=== PATIENT | female | born 1995 | race Two or more races ===

== ENCOUNTER 2017-03-30 20:32 | Emergency (ER) | payer MEDICAID ==
[~2017-03-30] VITALS: Ht 162.6 cm; Wt 74.6 kg
[~2017-03-30 20:32] MED LIST: PRENTAB28 PO
[2017-03-30 20:39] VITALS: BP 126/81
[2017-03-31] MEDS ORDERED: cefTRIAXone SOD 1,000 MG VL IM ONE
== END 2017-03-31 00:24 | disposition home or self-care (01) ==
LOC: ER 20:35
DX: L02.31 Cutaneous abscess of buttock (principal); L03.116 Cellulitis of left lower limb; Z79.899 Other long term (current) drug therapy
CPT/HCPCS: 96372; 99283; J0696

== ENCOUNTER 2017-11-26 06:53 | Emergency (ER) | payer MEDICAID ==
[~2017-11-26] VITALS: Ht 162.6 cm; Wt 74.8 kg
[2017-11-26 06:59] VITALS: BP 109/71
[2017-11-26] MEDS ORDERED: cefTRIAXone SOD 1,000 MG VL IM ONE (07:30)
[2017-11-26] MEDS ORDERED: ACETAMINOPHEN 500 MG TAB PO ONE (07:30)
== END 2017-11-26 07:46 | disposition home or self-care (01) ==
LOC: ER 06:53
DX: J03.90 Acute tonsillitis, unspecified (principal); N39.0 Urinary tract infection, site not specified
CPT/HCPCS: 81002; 96372; 99283; J0696

== ENCOUNTER 2024-06-21 22:06 | Emergency (ER) | payer MEDICAID ==
[~2024-06-21] VITALS: Ht 167.6 cm; Wt 79.4 kg
[2024-06-21 22:40] LABS: Urine Bacteria None Seen /hpf (None Seen)
[2024-06-21 22:43] LABS: Basophils # (auto) 0 10 ^3/uL (0-0.2); Basophils % (auto) 0.2 % (0.0-2.0); Eosinophils # (auto) 0.1 10 ^3/uL (0-0.8); Eosinophils % (auto) 0.9 % (0.0-7.0); Hemoglobin 13.6 g/dL (12.2-16.2); Lymphocytes # (auto) 2.2 10 ^3/uL (0.4-5.4); Lymphocytes % (auto) 25.1 % (10.0-50.0); Mean Corpuscular Hgb Conc. 34.1 g/dL (32.0-36.0); Mean Corpuscular Volume 94.1 fL (80.0-100.0); Monocytes # (auto) 0.7 10 ^3/uL (0-1.3); Monocytes % (auto) 7.8 % (0.0-12.0); Neutrophils # (auto) 5.7 10 ^3/uL (1.6-8.6); Nucleated Red Blood Cells % 0.1 %; Platelet Count (auto) 272 10^3/uL (140-450); Red Blood Cells 4.25 10^6/uL (4.0-5.20); Red Cell Distribution Width 12.9 % (11.8-14.3); White Blood Cell 8.6 10^3/uL (4.4-10.8)
[2024-06-21 22:59] LABS: Urine Blood Negative /uL (Negative); Urine Clarity Clear (Clear); Urine Color Yellow (Yellow); Urine Protein, UAD Negative (Negative); Urine Specific Gravity 1.026 (1.001-1.035); Urine Urobilinogen Normal (Negative); Urine WBC <1 /hpf (0 - 5); Urine pH 5.5 (5.0-9.0)
[2024-06-22 02:15] VITALS: BP 122/78; PULSE 84; RESP 18; TEMP 98.6; O2SAT 100
== END 2024-06-22 02:15 | disposition home or self-care (01) ==
LOC: ER 22:06
DX: O20.0 Threatened abortion (principal); R10.2 Pelvic and perineal pain; Z3A.11 11 weeks gestation of pregnancy; Z98.890 Other specified postprocedural states; Z79.899 Other long term (current) drug therapy
CPT/HCPCS: 36415; 76801; 76817; 81001; 84702; 85025

== ENCOUNTER 2025-01-04 17:11 | Emergency (ER) | payer MEDICAID ==
[~2025-01-04] VITALS: Ht 167.6 cm; Wt 81.0 kg
[2025-01-04 17:42] LABS: Basophils # (auto) 0 10 ^3/uL (0-0.2); Basophils % (auto) 0.4 % (0.0-2.0); Eosinophils # (auto) 0.1 10 ^3/uL (0-0.8); Eosinophils % (auto) 1.2 % (0.0-7.0); Hematocrit 42.2 % (36.0-46.0); Hemoglobin 14.4 g/dL (12.2-16.2); Lymphocytes # (auto) 2.5 10 ^3/uL (0.4-5.4); Lymphocytes % (auto) 30.8 % (10.0-50.0); Mean Corpuscular Hemoglobin 31.9 pg (28.0-32.0); Mean Corpuscular Hgb Conc. 34.2 g/dL (32.0-36.0); Mean Corpuscular Volume 93.1 fL (80.0-100.0); Monocytes # (auto) 0.8 10 ^3/uL (0-1.3); Monocytes % (auto) 9.6 % (0.0-12.0); Neutrophils # (auto) 4.6 10 ^3/uL (1.6-8.6); Nucleated Red Blood Cells % 0.1 %; Platelet Count (auto) 263 10^3/uL (140-450); Red Blood Cells 4.53 10^6/uL (4.0-5.20); Red Cell Distribution Width 12.9 % (11.8-14.3)
--- NOTE | 2025-01-04 17:50 | ED.PDOC ---
HPI Comments 29y F who presents to the ED for chief complaint of palpitations. Pt states she was at work and states her L arm felt weak and she started to have palpitations. Pt states the symptoms started at approx 430 PM, and have c ontinued since so she came to the ED for further evaluation. Pt in the ED, otherwise has noted stable vitals. Pt does states her father last and it has been stressor for her. Pt otherwise denies any past medical history. Pt denies any other symptoms. Pt denies any other symptoms at this time. Time Seen by MD: 17:44 Primary Care Provider: NONE Reviewed Notes: Nurses Notes, Medications, Allergies Allergies: Coded Allergies: NO KNOWN ALLERGIES (Unverified , 05/23/14) Home Meds Reported Medications Vit W/ Iron Carbonyl- ( PLUS IRON) Plus Fe Tab, 1 TAB PO DAILY, TAB 05/24/14 Information Source: Patient Mode of Arrival: Ambulatory Brought in by: self Severity: Moderate Timing: Hours Duration: Since onset Prehospital treatment: None Quality: Sharp, Pressure Onset: At Rest Cardiac Risk Factors: None PE Risk Factors: None History of: None Modifying Factors: Nothing Associated Signs and Symptoms: Palpitations Past Medical History PAST MEDICAL HISTORY: Denies Surgical History: BUSINESS INTEGRATION MANAGER History: No Pertinent BUSINESS INTEGRATION MANAGER History Family History Family History: Unknown Social History Smoker: Non-Smoker Alcohol: Denies ETOH Use Drugs: Denies Drug Use Lives In: Home Constitutional: denies: chills, diaphoresis, fatigue, fever, malaise, sweats, weakness, others EENTM: denies: blurred vision, double vision, ear bleeding, ear discharge, ear drainage, ear pain, ear ringing, eye pain, eye redness, hearing loss, mouth pain, mouth swelling, nasal discharge, nose bleeding, nose congestion, nose pain, photophobia, tearing, throat pain, throat swelling, voice changes, others Respiratory: denies: cough, hemoptysis, orthopnea, SOB at rest, shortness of breath, SOB with excertion, stridor, wheezing, others Cardiovascular: reports: palpitations; denies: chest pain, dizzy spells, diaphoresis, Dyspnea on exertion, edema, irregular heart beat, left arm pain, lightheadedness, PND, syncope, others Gastrointestinal: denies: abdomen distended, abdominal pain, blood streaked bowels, constipated, diarrhea, dysphagia, difficulty swallowing, hematemesis, melena, nausea, poor appetite, poor fluid intake, rectal bleeding, rectal pain, vomiting, others Genitourinary: denies: abnormal vagina bleeding, burning, dyspareunia, dysuria, flank pain, frequency, hematuria, incontinence, pain, , vagina discharge, urgency, others Neurological: denies: dizziness, fainting, headache, left sided numbness, left sided weakness, numbness, paresthesia, pre-existing deficit, right sided numbness, right sided weakness, seizure, speech problems, tingling, tremors, weakness, others Musculoskeletal: denies: back pain, gout, joint pain, joint swelling, muscle pain, muscle stiffness, neck pain, others Integumetry: denies: bruises, change in color, change in hair/nails, dryness, laceration, lesions, lumps, rash, wounds, others Allergic/Immunocompromised: denies: Difficulty Healing, Frequent Infections, Hives, Itching, others Hematologic/Lymphatic: denies: anemia, blood clots, easy bleeding, easy bruising, swollen glands, others Endocrine: denies: excessive hunger, excessive sweating, excessive thirst, excessive urination, flushing, intolerance to cold, intolerance to heat, unexplained weight gain, unexplained weight loss, others Psychiatric: denies: anxiety, bipolar disorder, depression, hopeless, panic disorder, schizophrenia, sleepless, suicidal, others All Other Systems: Reviewed and Negative Physical Exam General Appearance: No Apparent Distress HEENT: Normal ENT Inspection, Pharynx Normal, TMs Normal Neck: Full Range of Motion, Non-Tender, Normal, Normal Inspection Respiratory: Chest Non-Tender, Lungs Clear, No Accessory Muscle Use, No Respiratory Distress, Normal Breath Sounds Cardiovascular: No Edema, No JVD, No Murmur, No Gallop, Normal Peripheral Pulses, Regular Rate/Rhythm Breast Exam: Deferred Gastrointestinal: No Organomegaly, Non Tender, No Pulsatile Mass, Normal Bowel Sounds, Soft Genitalia: Deferred Pelvic: Deferred Rectal: Deferred Extremities: No calf tenderness, Normal capillary refill, Normal inspection, Normal range of motion, Non-tender, No pedal edema Musculoskeletal : Apperance: Normal Neurologic: Alert, second crusher II-XII nml as Tested, No Motor Deficits, Normal Affect, Normal Mood, No Sensory Deficits Cerebellar Function: Normal Reflexes: Normal Skin: Dry, Normal Color, Warm Lymphatic: No Adenopathy EKG EKG : Pulse Rate (adult): 88 [place]: RAD Cardiac Rhythm: NSR Block: None Hypertrophy: None ST: Normal Was a procedure done? Was a procedure done?: No CP Differential Dx Differential Diagnosis: A-fib, A-Flutter, Angina, Anxiety / Panic Attack, Atrial Dysrhythmia, Electrolyte Disorder, PVC's Differential Diagnosis: Chest Wall Pain X-Ray, Labs, Meds, VS Vital Signs Date Time Temp Pulse Resp B/P (MAP) Pulse Ox O2 Delivery O2 Flow Rate FiO2 01/04/25 17:50 88 01/04/25 17:48 98.0 91 18 142/77 (98) 99 01/04/25 17:19 88 Lab Test 01/04/25 17:25 Range/Units White Blood Count 8.0 4.4-10.8 10^3/uL Red Blood Count 4.53 4.0-5.20 10^6/uL Hemoglobin 14.4 12.2-16.2 g/dL Hematocrit 42.2 36.0-46.0 % Mean Corpuscular Volume 93.1 80.0-100.0 fL Mean Corpuscular Hemoglobin 31.9 28.0-32.0 pg Mean Corpuscular Hemoglobin Concent 34.2 32.0-36.0 g/dL Red Cell Distribution Width 12.9 11.8-14.3 % Platelet Count 263 140-450 10^3/uL Mean Platelet Volume 8.5 6.9-10.8 fL Neutrophils (%) (Auto) 58.0 37.0-80.0 % Lymphocytes (%) (Auto) 30.8 10.0-50.0 % Monocytes (%) (Auto) 9.6 0.0-12.0 % Eosinophils (%) (Auto) 1.2 0.0-7.0 % Basophils (%) (Auto) 0.4 0.0-2.0 % Neutrophils # (Auto) 4.6 1.6-8.6 10 ^3/uL Lymphocytes # (Auto) 2.5 0.4-5.4 10 ^3/uL Monocytes # (Auto) 0.8 0-1.3 10 ^3/uL Eosinophils # (Auto) 0.1 0-0.8 10 ^3/uL Basophils # (Auto) 0 0-0.2 10 ^3/uL Nucleated Red Blood Cells 0.1 % D-Dimer, Quantitative 0.41 0.0-0.49 mg/L FEU Sodium Level 138 136-145 mmol/L Potassium Level 3.8 3.5-5.1 mmol/L Chloride Level 104 98-107 mmol/L Carbon Dioxide Level 27 20-31 mmol/L Anion Gap 7 5-15 Blood Urea Nitrogen 11 9-23 mg/dL Creatinine 0.69 0.550-1.02 mg/dL Glomerular Filtration Rate Calc 119 >90 mL/min BUN/Creatinine Ratio 15.9 10.0-20.0 Serum Glucose 81 74-106 mg/dL Calcium Level 9.9 8.7-10.4 mg/dL Troponin I High Sensitivity < 3 L </=34 ng/L The CBC and chemistry panel are within normal limits The troponin level is negative The patient was being discharged The patient will follow up with the primary care doctor The patient will return to the emergency department's the condition worsens. The diagnosis is palpitations Time of 1ST Reevaluation: 18:15 Reevaluation 1ST: Unchanged Patient Education/Counseling: Diagnosis, Treatment, Prognosis, Need For Follow Up Family Education/Counseling: No Family Present Additional Information -Reviewed patient's previous visit(s): - The following tests were ordered, and results were reviewed by me: tropx 1, cbc, d-dimer, bmp, chest x-ray, ekg x1, urine - Additional information was gathered from interviewing the following independent Historian: pt - I reviewed and agreed with the following test results read by other provider: radiologist - I discussed treatments and results with medical personnel and: patient Comprehensive systems review obtained and negative except for what is stated in the HPI. Departure 1 Departure Time of Disposition: 20:05 Impression: Primary Impression: Palpitations Disposition: 01 HOME / SELF CARE / HOMELESS Condition: Fair Discharged With: Self Critical Care Note Critical Care Time?: No Stability Stability form required: No Heart Score Heart Score: Heart Score Response (Comments) Value History Slightly Suspicious 0 EKG Normal 0 Age <45 0 Risk Factors No known risk factors 0 Troponin Normal limit 0 Total 0 I personally scribed for KESHIA CHAVARRIA MD ([email or web address]) on 3/6/25 at 17:50. Electronically submitted by Corey Guardado ([email or web address]). KESHIA CHAVARRIA MD Jan 04, 2025 17:50
[2025-01-04 18:12] LABS: Chloride 104 mmol/L (98-107); Potassium 3.8 mmol/L (3.5-5.1); Sodium 138 mmol/L (136-145)
[2025-01-04 18:13] LABS: Anion Gap 7 (5-15); Calcium 9.9 mg/dL (8.7-10.4); Carbon Dioxide 27 mmol/L (20-31)
[2025-01-04 18:18] LABS: BUN/Creatinine Ratio 15.9 (10.0-20.0); Blood Urea Nitrogen 11 mg/dL (9-23); Glucose 81 mg/dL (74-106)
[2025-01-04 20:10] VITALS: BP 134/89; PULSE 79; RESP 16; TEMP 97.9; O2SAT 99
--- NOTE | 2025-01-05 08:21 | ECG ---
[facility] Test Date: 2025-01-04 Test Time: 17:19:54 Pat Name: RUSTAM ORLANDO Department: A Room: Gender: F Spread Cutter: MARLIN : 1995 Requested By: KESHIA CHAVARRIA Order Number: [id number] Reading MD: Glen Colbert Measurements Intervals Mand[place] Rate: 88 P: 57 NC: 144 QRS: 92 QRSD: 82 T: 55 QT: 339 QTc: 410 Interpretive Statements Sinus rhythm Borderline right axis deviation Electronically Signed On 01-06-2025 18:01:25 PST by Glen Colbert Please click the below link to view image of tracing.
== END 2025-01-04 20:22 | disposition home or self-care (01) ==
LOC: ER 17:11
DX: R00.2 Palpitations (principal); Z98.890 Other specified postprocedural states
CPT/HCPCS: 36415; 80048; 84484; 85025; 85379; 93005